=== PATIENT | male | born 1980 | race Caucasian/White ===

== ENCOUNTER → 2021-02-19 13:54 | Outpatient (BNVA) | payer BC, SELFPAY | PROVIDERS: Family Provider Nurse Practitioner Family; PCP Nurse Practitioner Family; Referring Provider Nurse Practitioner Family; Visit Provider Surgery | DX: Z20.822 Contact with and (suspected) exposure to COVID-19 (principal); Z11.52 Encounter for screening for COVID-19 | CPT/HCPCS: 87635 ==

== ENCOUNTER 2021-02-26 08:28 | Day surgery (SDC) | payer BC, SELFPAY ==
[2021-02-22 14:27] VITALS: BMI 31.1
--- NOTE | 2021-02-26 09:13 | W.PM.OPSUD ---
Surgery/Procedure H&P Update DATE OF PROCEDURE: February 26, 2021 DATE H&P PERFORMED: 02/19/21 H&P UPDATE INFORMATION: I have reviewed H&P completed within last 30 days, I have examined patient prior to procedure and No changes to prior documentation PLANNED PROCEDURE: Operation Date: 02/26/21 10:15 Proposed Procedures p EGD 90508 K21.9(Not Applicable) - Davian Johnson MD
--- NOTE | 2021-02-26 09:15 | ANES.PREANE2 ---
Pre-Anesthetic Assessment Pre-Anesthetic Assessment: Height/Weight: Height 1.83 m Weight 104.326 kg Preop Diagnosis: GERD Proposed Procedure: Operation Date: 02/26/21 10:15 Proposed Procedures p EGD 91577 K21.9(Not Applicable) - Davian Johnson MD Familial anesthetic complications: None Was Beta Ventura taken within 24 hours: N/A Was Clonidine taken within 24 hours: N/A Last intake: > 8hrs Social: Social History: Tobacco and No alcohol Exam: Pre-Anes Outpt Exam: alert, oriented x 3, clear to auscultation bilaterally and regular rate & rhythm Airway: MP: 4 Dentition: Chipped and Other (poor dentition, multiple missing) Additional comments: doran, large neck GI: GI: GERD Anesthetic Plan: ASA status: 2 Anesthesia: MAC Risk of > 500 ml blood loss (7ml/kg in children): No PFSH Anesthesia PFSH: Social History (Updated 02/19/21 @ 13:19 by Michael Slaughter MA) Smoking and tobacco status: current every day smoker Alcohol intake: never Lives independently: No Household members: significant other and children Current gender identity: Male Data Anesthesia Cardiac Studies: No Data to Display
[2021-02-26 09:39] VITALS: BP 145/97; PULSE 70; RESP 18; TEMP 36.3; O2SAT 97
[2021-02-26] MEDS: sodium chloride 0.9% 1,000 ML 30 ML IV (09:50)
[2021-02-26 10:15] VITALS: BP 120/82; PULSE 93; RESP 18; TEMP 36.1; O2SAT 95
[2021-02-26 10:30] VITALS: BP 128/76; PULSE 71; RESP 16; O2SAT 97
--- NOTE | 2021-02-26 14:54 | ANE.PACU2 ---
Inpatient post-anesthesia follow up: Airway intact: Yes Vital signs: Temperature 97 F Pulse Rate 71 Respiratory Rate 16 Blood Pressure 128/76 Pulse Oximetry 97 Oxygen Delivery Me thod Room Air Oxygen Flow Rate 7 Fraction of Inspir ed Oxygen Hydration adequate: Yes Nausea and vomiting: No Pain level: 2 Mental status: Baseline
== END 2021-02-26 10:40 | disposition home or self-care (01) ==
PROVIDERS: PCP Nurse Practitioner Family; Visit Provider Surgery
PROC: 0DJ08ZZ Inspection of Upper Intestinal Tract, Via Natural or Artificial Opening Endoscopic (ICD-10-PCS; CPT 43235; principal; 2021-02-26 10:15)
DX: R11.2 Nausea with vomiting, unspecified (principal); K44.9 Diaphragmatic hernia without obstruction or gangrene; K29.70 Gastritis, unspecified, without bleeding; K21.00 Gastro-esophageal reflux disease with esophagitis, without bleeding
CPT/HCPCS: 43239; 88305; 96360; J2704; J7030

== ENCOUNTER 2021-04-23 07:39 | Outpatient (CLI) | payer BC, SELFPAY ==
--- NOTE | 2021-04-23 08:00 | US_ITS ---
WS: [id number] RIGHT UPPER QUADRANT ULTRASOUND HISTORY: R19.7 - Diarrhea, unspecified COMPARISON: None available. Liver: 19.9 cm in length. Moderately enlarged liver with variable echogenicity consistent with hepati c steatosis. No bile duct dilatation or mass. Portal Vein: Normal hepatopetal flow with monophasic waveform. Gallbladder: Normally distended gallbladder with no stones or wall thickening. CBD: 0.5 cm Pancreas: Not visualized. Right kidney: 10.9 cm in length. Normal size and echogenicity. No hydronephrosis or mass. Aorta and IVC: Unremarkable abdominal aorta and IVC. No ascites. US/US gall bladder [id number] IMPRESSION: 1. Moderate hepatic steatosis and hepatomegaly. No bile duct dilatation. 2. Normal gallbladder.
== END 2021-04-23 07:40 | disposition home or self-care (01) ==
LOC: RAD 07:42
PROVIDERS: PCP Nurse Practitioner Family; Visit Provider Surgery
DX: R19.7 Diarrhea, unspecified (principal); K76.0 Fatty (change of) liver, not elsewhere classified; R16.0 Hepatomegaly, not elsewhere classified
CPT/HCPCS: 76705

== ENCOUNTER 2021-06-18 07:18 | Outpatient (CLI) | payer BC, SELFPAY ==
--- NOTE | 2021-06-18 07:30 | NM_ITS ---
WS: [id number] NUCLEAR MEDICINE HIDA SCAN CLINICAL INFORMATION: N/V TECHNIQUE: Following intravenous administration of 7.9 mCi of technetium 99m mebrofenin, images of th e abdomen were obtained over the course of 60 minutes. Next, gallbladder ejection fraction was determ ined by obtaining preprandial and one-hour postprandial images of the gallbladder following oral mitesh stion of Ensure. COMPARISON: Ultrasound April 23, 2021 FINDINGS: Normal hepatic uptake at 5 minutes. Gallbladder is visualized by 15 minutes. No evidence of acute cho lecystitis. Normal common bile duct and small bowel activity. Normal hepatic excretion. Gallbladder ejection fraction 62% within normal limits. No evidence of biztalk architect keysha cholecystitis. NM/NM hepatobiliary w phar* [id number] IMPRESSION: 1. No evidence of acute or chronic cholecystitis. 2. Normal gallbladder ejection fraction 62% within normal limits.
== END 2021-06-18 07:19 | disposition home or self-care (01) ==
LOC: RAD 07:19
PROVIDERS: PCP Nurse Practitioner Family; Visit Provider Surgery
DX: R11.2 Nausea with vomiting, unspecified (principal)
CPT/HCPCS: 78227; A9537